=== PATIENT | female | born 1990 | race Caucasian/White ===

== ENCOUNTER 2017-03-29 20:55 | Emergency (ER) | payer MEDICAID ==
[~2017-03-29] VITALS: Ht 160 cm; Wt 80.1 kg
[~2017-03-29 20:55] MED LIST: CITA20TA9 PO; PRAZ2CAP2 PO; QUET25TA5 PO
[2017-03-29 22:32] LABS: CULTURE INDICATED? YES; MICROSCOPIC INDICATED
[2017-03-29 23:54] LABS: ALANINE AMINOTRANSFERASE 18 U/L (12-78); ALBUMIN 2.9 g/dL (3.4-5.0); ANION GAP 8 mmol/L (5-15); CHLORIDE 106 mmol/L (98-107); CREATININE 0.41 mg/dL (0.55-1.02)
[2017-03-29 23:56] LABS: BASOPHILS # (AUTO) 0.02 x10^3/uL (0-0.1); BASOPHILS % (AUTO) 0 % (0-1); EOSINOPHILS # (AUTO) 0.18 x10^3/uL (0-0.4); EOSINOPHILS % (AUTO) 2 % (1-7); LYMPHOCYTES # (AUTO) 3.18 x10^3/uL (1-3.4); LYMPHOCYTES % (AUTO) 38 % (22-44); MD NO; MEAN CORPUSCULAR HEMOGLOBIN 29.3 pg (27.0-34.8); MEAN CORPUSCULAR HGB CONC 33.3 g/dL (32.4-35.8); MEAN CORPUSCULAR VOLUME 87.9 fL (80-100); MEAN PLATELET VOLUME 9.3 fL (7.4-10.4); MONOCYTES # (AUTO) 0.48 x10^3/uL (0.2-0.8); MONOCYTES % (AUTO) 6 % (2-9); NEUTROPHILS # (AUTO) 4.52 x10^3/uL (1.8-6.8); NEUTROPHILS % (AUTO) 54 % (42-75); PLATELET COUNT 192 x10^3/uL (130-400); RED BLOOD COUNT 4.28 x10^6/uL (3.82-5.3); RED CELL DISTRIBUTION WIDTH 15.3 % (9.6-15.2)
[2017-03-30 00:01] VITALS: BP 103/63
[2017-03-30 00:10] LABS: ALKALINE PHOSPHATASE 49 U/L (45-117); BILIRUBIN,TOTAL 0.2 mg/dL (0.2-1.0); TOTAL PROTEIN 6.6 g/dL (6.4-8.2)
== END 2017-03-30 02:07 | disposition home or self-care (01) ==
LOC: ED 03-30 00:38
DX: O26.891 Other specified pregnancy related conditions, first trimester (principal); R10.30 Lower abdominal pain, unspecified; Z87.891 Personal history of nicotine dependence; Z3A.13 13 weeks gestation of pregnancy
CPT/HCPCS: 36415; 76801; 80053; 81001; 84702; 85025; 86901; 87086; 99285

== ENCOUNTER 2017-05-02 20:46 | Emergency (ER) | payer MEDICAID ==
[~2017-05-02] VITALS: Ht 160 cm; Wt 82.7 kg
[2017-05-02 20:47] VITALS: BP 112/75
== END 2017-05-02 22:58 | disposition home or self-care (01) ==
LOC: ED 21:40
DX: O20.0 Threatened abortion (principal); O26.892 Other specified pregnancy related conditions, second trimester; E05.90 Thyrotoxicosis, unspecified without thyrotoxic crisis or storm; O16.2 Unspecified maternal hypertension, second trimester; Z3A.18 18 weeks gestation of pregnancy; Z90.49 Acquired absence of other specified parts of digestive tract
CPT/HCPCS: 36415; 76815; 84702; 86901; 99285

== ENCOUNTER 2017-07-07 07:42 | Emergency (ER) | payer MEDICAID ==
[~2017-07-07] VITALS: Ht 160 cm; Wt 87.9 kg
[2017-07-07 07:44] VITALS: BP 112/72
== END 2017-07-07 08:42 | disposition home or self-care (01) ==
LOC: ED 08:30
DX: O26.892 Other specified pregnancy related conditions, second trimester (principal); Z3A.27 27 weeks gestation of pregnancy; K02.9 Dental caries, unspecified; K04.7 Periapical abscess without sinus; I10 Essential (primary) hypertension; Z90.49 Acquired absence of other specified parts of digestive tract
CPT/HCPCS: 99283

== ENCOUNTER 2017-09-09 15:42 | Inpatient (IN) | payer MEDICAID ==
[~2017-09-09] VITALS: Ht 160 cm; Wt 90.5 kg
[2017-09-09 16:25] VITALS: BP 116/69
[2017-09-09] MEDS ORDERED: METOCLOPRAMIDE 5 MG/ML, 2ML ONE (16:35)
[2017-09-09] MEDS ORDERED: OXYTOCIN 30U/ 0.9% NaCL 500ML 500 ML ONE (16:35)
[2017-09-09] MEDS ORDERED: NEWBORN KIT ONE (16:35)
[2017-09-09] MEDS ORDERED: SODIUM CITRATE/CITRIC ACID 30 ML UDC ONE (16:35)
[2017-09-09] MEDS ORDERED: morphine SULFATE/PF 0.5 MG/ML, 10ML ONE (16:45)
[2017-09-09] MEDS: LACTATED RINGERS 1,000 ML IV SCH ×4 (17:00→19:55)
[2017-09-09] MEDS ORDERED: SODIUM CITRATE/CITRIC ACID 30 ML UDC PO ONE (17:00)
[2017-09-09] MEDS ORDERED: LACTATED RINGERS 1,000 ML IVBOLUS ONE (17:00)
[2017-09-09] MEDS ORDERED: METOCLOPRAMIDE 5 MG/ML, 2ML IVPush ONE (17:00)
[2017-09-09 17:27] LABS: BASOPHILS # (AUTO) 0.03 x10^3/uL (0-0.1); BASOPHILS % (AUTO) 0 % (0-1); EOSINOPHILS # (AUTO) 0.19 x10^3/uL (0-0.4); EOSINOPHILS % (AUTO) 2 % (1-7); LYMPHOCYTES # (AUTO) 3.28 x10^3/uL (1-3.4); LYMPHOCYTES % (AUTO) 28 % (22-44); MD NO; MEAN CORPUSCULAR HEMOGLOBIN 27.9 pg (27.0-34.8); MEAN CORPUSCULAR HGB CONC 32.7 g/dL (32.4-35.8); MEAN CORPUSCULAR VOLUME 85.2 fL (80-100); MEAN PLATELET VOLUME 10.1 fL (7.4-10.4); MONOCYTES # (AUTO) 0.87 x10^3/uL (0.2-0.8); MONOCYTES % (AUTO) 8 % (2-9); NEUTROPHILS % (AUTO) 62 % (42-75); PLATELET COUNT 184 x10^3/uL (130-400); RED BLOOD COUNT 4.85 x10^6/uL (3.82-5.3); RED CELL DISTRIBUTION WIDTH 13.7 % (9.6-15.2)
[2017-09-09 17:40] LABS: MICROSCOPIC INDICATED
[2017-09-09 17:47] LABS: AMPHETAMINE SCREEN, URINE Negative (Negative); BARBITURATE SCREEN, URINE Negative (Negative); BENZODIAZEPINE SCREEN, URINE Negative (Negative); CANNABINOID SCREEN, URINE Negative (Negative); COCAINE SCREEN, URINE Negative (Negative); METHADONE SCREEN, URINE Positive (Negative); OPIATE SCREEN, URINE Negative (Negative)
[2017-09-09] MEDS ORDERED: MIDAZOLAM 1 MG/ML, 2ML ONE (18:26)
[2017-09-09] MEDS ORDERED: EPHEDRINE 50 MG/ML, 1ML ONE (19:31)
[2017-09-09] MEDS ORDERED: OXYTOCIN 10 UNITS/ML, 1ML ONE (19:31)
[2017-09-09] MEDS ORDERED: CEFAZOLIN 1,000 MG ONE (19:31)
[2017-09-09] MEDS ORDERED: PHENYLEPHRINE 10 MG/ML ONE (19:31)
[2017-09-09] MEDS ORDERED: ONDANSETRON 2MG/ML, 2ML ONE (19:31)
[2017-09-09] MEDS ORDERED: WATER-INJECTION,STERILE 10 ML IV ONE (19:31)
[2017-09-09] MEDS: OXYTOCIN 30U/ 0.9% NaCL 500ML 500 ML IV SCH ×2 (19:33→19:55)
[2017-09-09] MEDS ORDERED: ONDANSETRON 2MG/ML, 2ML IV PRN (20:00)
[2017-09-09] MEDS ORDERED: METHYLERGONOVINE 0.2 MG/ML IM PRN (20:00)
[2017-09-09] MEDS ORDERED: SIMETHICONE 80 MG CHEW TAB PO PRN (20:00)
[2017-09-09] MEDS ORDERED: ACETAMINOPHEN 325 MG TABLET PO PRN ×3 (20:00)
[2017-09-09] MEDS ORDERED: CARBOPROST TROMETHAMINE 250 MCG/ML, 1ML IM PRN (20:00)
[2017-09-09] MEDS ORDERED: KETOROLAC 30 MG/1 ML IV PRN (20:00)
[2017-09-09] MEDS ORDERED: CALCIUM CARBONATE 500 MG TAB.CHEW PO PRN (20:00)
[2017-09-09] MEDS ORDERED: KETOROLAC 30 MG/1 ML ONE (20:06)
[2017-09-09] MEDS ORDERED: METHADONE PO PRN (20:30)
[2017-09-09] MEDS: KETOROLAC 30 MG/1 ML IV PRN (20:36)
[2017-09-09] MEDS ORDERED: METHADONE INTENSOL 10 MG/ML ORAL CONC PO PRN (21:00)
[2017-09-09 21:45] VITALS: BP 124/77
[2017-09-09] MEDS ORDERED: DIPHENHYDRAMINE 50 MG/ML, 1ML IV PRN (22:30)
[2017-09-09] MEDS ORDERED: OXYcodone/APAP 5/325MG TABLET PO PRN (22:30)
[2017-09-09] MEDS ORDERED: HYDROmorphone 1 MG/ML, 1ML IVPush PRN (22:30)
[2017-09-09] MEDS ORDERED: NALOXONE 0.4 MG/ML, 1ML IV PRN ×2 (22:30)
[2017-09-09] MEDS ORDERED: ONDANSETRON 2MG/ML, 2ML IVPush PRN (22:30)
[2017-09-10] MEDS: LACTATED RINGERS 1,000 ML IV SCH ×5 (00:34→15:33)
[2017-09-10 00:42] VITALS: BP 103/65
[2017-09-10] MEDS: KETOROLAC 30 MG/1 ML IV PRN ×3 (02:22→14:44)
[2017-09-10] MEDS: OXYTOCIN 30U/ 0.9% NaCL 500ML 500 ML IV SCH ×3 (02:34→15:33)
[2017-09-10 03:48] VITALS: BP 108/67
[2017-09-10] MEDS: OXYcodone/APAP 5/325MG TABLET PO PRN ×2 (04:04→18:24)
[2017-09-10 05:59] LABS: BASOPHILS # (AUTO) 0.04 x10^3/uL (0-0.1); BASOPHILS % (AUTO) 0 % (0-1); EOSINOPHILS # (AUTO) 0.14 x10^3/uL (0-0.4); EOSINOPHILS % (AUTO) 1 % (1-7); LYMPHOCYTES # (AUTO) 2.24 x10^3/uL (1-3.4); LYMPHOCYTES % (AUTO) 20 % (22-44); MD NO; MEAN CORPUSCULAR HEMOGLOBIN 28.7 pg (27.0-34.8); MEAN CORPUSCULAR HGB CONC 33.3 g/dL (32.4-35.8); MEAN CORPUSCULAR VOLUME 86.2 fL (80-100); MEAN PLATELET VOLUME 9.9 fL (7.4-10.4); MONOCYTES # (AUTO) 0.65 x10^3/uL (0.2-0.8); MONOCYTES % (AUTO) 6 % (2-9); NEUTROPHILS # (AUTO) 8.36 x10^3/uL (1.8-6.8); NEUTROPHILS % (AUTO) 73 % (42-75); PLATELET COUNT 176 x10^3/uL (130-400); RED BLOOD COUNT 4.29 x10^6/uL (3.82-5.3); RED CELL DISTRIBUTION WIDTH 13.6 % (9.6-15.2)
[2017-09-10 07:00] VITALS: BP 107/71
[2017-09-10] MEDS: DOCUSATE 100 MG CAPSULE PO PRN ×2 (09:51→21:36)
[2017-09-10] MEDS: PRENATAL VIT/IRON/FA 1 EACH TABLET PO SCH (09:51)
[2017-09-10] MEDS: METHADONE INTENSOL 10 MG/ML ORAL CONC PO SCH ×2 (09:52→21:36)
[2017-09-10 12:30] VITALS: BP 110/71
[2017-09-10 20:00] VITALS: BP 111/77
[2017-09-10] MEDS: IBUPROFEN 800 MG TABLET PO PRN (21:42)
[2017-09-11] MEDS: LACTATED RINGERS 1,000 ML IV SCH (01:33)
[2017-09-11] MEDS: OXYTOCIN 30U/ 0.9% NaCL 500ML 500 ML IV SCH (01:33)
[2017-09-11] MEDS: OXYcodone/APAP 5/325MG TABLET PO PRN (03:13)
[2017-09-11 08:00] VITALS: BP 97/61
[2017-09-11] MEDS: DOCUSATE 100 MG CAPSULE PO PRN ×2 (09:19→21:19)
[2017-09-11] MEDS: PRENATAL VIT/IRON/FA 1 EACH TABLET PO SCH (09:19)
[2017-09-11] MEDS: METHADONE INTENSOL 10 MG/ML ORAL CONC PO SCH ×2 (09:19→21:19)
[2017-09-11] MEDS: IBUPROFEN 800 MG TABLET PO PRN ×2 (09:28→17:17)
[2017-09-11 23:45] VITALS: BP 116/67
[2017-09-12] MEDS: OXYcodone/APAP 5/325MG TABLET PO PRN (00:35)
[2017-09-12] MEDS: PRENATAL VIT/IRON/FA 1 EACH TABLET PO SCH (09:05)
[2017-09-12] MEDS: DOCUSATE 100 MG CAPSULE PO PRN (09:05)
[2017-09-12] MEDS: METHADONE INTENSOL 10 MG/ML ORAL CONC PO SCH ×2 (09:06→22:08)
[2017-09-12 09:30] VITALS: BP 117/80
[2017-09-12] MEDS: IBUPROFEN 800 MG TABLET PO PRN (11:05)
[2017-09-12 21:14] VITALS: BP 109/75
[2017-09-13 01:43] VITALS: BP 118/82
[2017-09-13 08:20] VITALS: BP 118/81
[2017-09-13] MEDS: METHADONE INTENSOL 10 MG/ML ORAL CONC PO SCH (09:10)
[2017-09-13] MEDS: DOCUSATE 100 MG CAPSULE PO PRN (09:21)
[2017-09-13] MEDS: PRENATAL VIT/IRON/FA 1 EACH TABLET PO SCH (09:21)
[2017-09-13] MEDS ORDERED: IBUP-1222 PO (11:30)
== END 2017-09-13 18:20 | disposition home or self-care (01) | DRG 765 ==
LOC: LDOP 15:42 → LDIP 16:34 → 2NW 21:25
PROVIDERS: ADMIT Obstetrics & Gynecology; ATTEND Obstetrics & Gynecology
PROC: 10D00Z1 Extraction of Products of Conception, Low, Open Approach (ICD-10-PCS; principal; 2017-09-09)
DX: O34.211 Maternal care for low transverse scar from previous cesarean delivery (principal); O99.324 Drug use complicating childbirth; Z37.0 Single live birth; O99.284 Endocrine, nutritional and metabolic diseases complicating childbirth; F11.90 Opioid use, unspecified, uncomplicated; E03.9 Hypothyroidism, unspecified; O36.5930 Maternal care for other known or suspected poor fetal growth, third trimester, not applicable or unspecified; Z3A.37 37 weeks gestation of pregnancy
CPT/HCPCS: 36415; 80307; 81001; 85025; 86850; 86900; 87086; J0690; J1885; J2250; J2274; J2405; J2370; J2590; J2765; J7120

== ENCOUNTER 2017-12-11 14:11 | Emergency (ER) | payer MEDICAID ==
[~2017-12-11] VITALS: Ht 160 cm; Wt 90.0 kg
[~2017-12-11 14:11] MED LIST changes: +IBUP-1222 PO
[2017-12-11 14:25] VITALS: BP 119/71
[2017-12-11] MEDS ORDERED: METH5TAB2 PO (14:37)
[2017-12-11 14:52] LABS: BASOPHILS # (AUTO) 0.01 x10^3/uL (0-0.1); BASOPHILS % (AUTO) 0 % (0-1); EOSINOPHILS # (AUTO) 0.16 x10^3/uL (0-0.4); EOSINOPHILS % (AUTO) 2 % (1-7); LYMPHOCYTES # (AUTO) 1.58 x10^3/uL (1-3.4); LYMPHOCYTES % (AUTO) 23 % (22-44); MD NO; MEAN CORPUSCULAR HEMOGLOBIN 27.6 pg (27.0-34.8); MEAN CORPUSCULAR HGB CONC 33.8 g/dL (32.4-35.8); MEAN CORPUSCULAR VOLUME 81.5 fL (80-100); MEAN PLATELET VOLUME 8.8 fL (7.4-10.4); MONOCYTES # (AUTO) 0.24 x10^3/uL (0.2-0.8); MONOCYTES % (AUTO) 3 % (2-9); NEUTROPHILS % (AUTO) 72 % (42-75); PLATELET COUNT 262 x10^3/uL (130-400); RED BLOOD COUNT 5.32 x10^6/uL (3.82-5.3); RED CELL DISTRIBUTION WIDTH 15.2 % (9.6-15.2)
[2017-12-11 14:59] LABS: ALANINE AMINOTRANSFERASE 30 U/L (12-78); ALBUMIN 3.9 g/dL (3.4-5.0); ANION GAP 9 mmol/L (5-15); CALCIUM 8.2 mg/dL (8.5-10.1); CHLORIDE 103 mmol/L (98-107); CREATININE 0.86 mg/dL (0.55-1.02)
[2017-12-11] MEDS ORDERED: ONDANSETRON ODT 4 MG PO ONE (15:00)
[2017-12-11 15:03] LABS: ALKALINE PHOSPHATASE 82 U/L (45-117); BILIRUBIN,TOTAL 1.5 mg/dL (0.2-1.0); TOTAL PROTEIN 8.8 g/dL (6.4-8.2)
[2017-12-11] MEDS ORDERED: ONDANSETRON ODT 4 MG ONE (15:14)
[2017-12-11 15:18] LABS: MICROSCOPIC AUTO
[2017-12-11 15:23] LABS: CULTURE INDICATED? YES
== END 2017-12-11 17:21 | disposition home or self-care (01) ==
LOC: ED 17:19
DX: K52.9 Noninfective gastroenteritis and colitis, unspecified (principal); N30.00 Acute cystitis without hematuria; I10 Essential (primary) hypertension; E03.9 Hypothyroidism, unspecified; Z87.891 Personal history of nicotine dependence; Z90.89 Acquired absence of other organs; Z90.49 Acquired absence of other specified parts of digestive tract; E66.01 Morbid (severe) obesity due to excess calories; Z68.35 Body mass index [BMI] 35.0-35.9, adult
CPT/HCPCS: 36415; 76700; 80053; 81001; 83690; 84703; 85025; 87086; 99285; Q0162

== ENCOUNTER 2019-03-18 21:37 | Outpatient (CLI) | payer OTHER ==
[~2019-03-18] VITALS: Ht 160 cm; Wt 90.0 kg
[~2019-03-18 21:37] MED LIST changes: +METH5TAB2 PO
[2019-03-18 21:58] VITALS: BP 123/70
[2019-03-18] MEDS ORDERED: PREN1TAB60 PO (22:21)
[2019-03-18 22:42] LABS: MICROSCOPIC INDICATED
[2019-03-18 22:50] LABS: AMPHETAMINE SCREEN, URINE Positive (Negative); BARBITURATE SCREEN, URINE Negative (Negative); BENZODIAZEPINE SCREEN, URINE Negative (Negative); CANNABINOID SCREEN, URINE Negative (Negative); COCAINE SCREEN, URINE Negative (Negative); METHADONE SCREEN, URINE Negative (Negative); OPIATE SCREEN, URINE Negative (Negative)
[2019-03-18] MEDS ORDERED: NITR100C56 PO (23:13)
[2019-03-18] MEDS ORDERED: NITROFURANTOIN (MACROBID) 100 MG CAPSULE ONE (23:14)
[2019-03-18] MEDS ORDERED: NITROFURANTOIN (MACROBID) 100 MG CAPSULE PO ONE (23:30)
== END 2019-03-18 23:23 | disposition home or self-care (01) ==
LOC: LDOP 21:37
PROVIDERS: ATTEND Obstetrics & Gynecology
DX: O26.891 Other specified pregnancy related conditions, first trimester (principal); R10.9 Unspecified abdominal pain; M54.5 Low back pain; Z3A.11 11 weeks gestation of pregnancy
CPT/HCPCS: 80307; 81001; 87077; 87086; 87186; 99211; G0463

== ENCOUNTER 2019-04-23 10:29 | Outpatient (CLI) | payer MEDICAID, OTHER ==
[~2019-04-23] VITALS: Ht 160 cm; Wt 89.0 kg
[~2019-04-23 10:29] MED LIST changes: +NITR100C56 PO; +PREN1TAB60 PO
[2019-04-23] MEDS ORDERED: DIAZEPAM 10 MG TABLET PO ONE (11:00)
[2019-04-23 11:32] LABS: AMPHETAMINE SCREEN, URINE Negative (Negative); BARBITURATE SCREEN, URINE Negative (Negative); BENZODIAZEPINE SCREEN, URINE Negative (Negative); CANNABINOID SCREEN, URINE Negative (Negative); COCAINE SCREEN, URINE Negative (Negative); METHADONE SCREEN, URINE Negative (Negative); OPIATE SCREEN, URINE Negative (Negative)
[2019-04-23 11:51] LABS: ALBUMIN 2.4 g/dL (3.4-5.0); CHLORIDE 105 mmol/L (98-107)
[2019-04-23 11:52] LABS: MICROSCOPIC INDICATED
[2019-04-23 11:57] LABS: ALANINE AMINOTRANSFERASE 16 U/L (12-78); ALKALINE PHOSPHATASE 105 U/L (45-117); ANION GAP 8 mmol/L (5-15); BILIRUBIN,TOTAL 0.4 mg/dL (0.2-1.0); CALCIUM 8.6 mg/dL (8.5-10.1); CREATININE 0.57 mg/dL (0.55-1.02); TOTAL PROTEIN 7.3 g/dL (6.4-8.2)
[2019-04-23 12:12] LABS: MEAN CORPUSCULAR HEMOGLOBIN 25.7 pg (27.0-34.8); MEAN CORPUSCULAR VOLUME 80.4 fL (80-100); MEAN PLATELET VOLUME 10.3 fL (7.4-10.4); PLATELET COUNT 275 x10^3/uL (130-400); RED BLOOD COUNT 4.11 x10^6/uL (3.82-5.3); RED CELL DISTRIBUTION WIDTH 15.6 % (9.6-15.2)
== END 2019-04-23 13:40 | disposition home or self-care (01) ==
LOC: LDOP 10:29
PROVIDERS: ATTEND Obstetrics & Gynecology
DX: O26.892 Other specified pregnancy related conditions, second trimester (principal); R42 Dizziness and giddiness; R06.02 Shortness of breath; Z3A.17 17 weeks gestation of pregnancy
CPT/HCPCS: 36415; 80053; 80307; 81001; 85027; 86592; 86762; 86850; 86900; 87086; 87340; 87806; 99211; G0463; G0475

== ENCOUNTER 2019-06-21 12:27 | Emergency (ER) | payer MEDICAID ==
--- NOTE | 2019-06-21 12:36 | NUR ---
ETCHER [employer] BOARDS: PT WITH NO RESPIRATORY COMPLAINTS OR SYMPTOMS, NO FEVER. PT TO L&D VIA WHEELCHAIR WITH TECH TRANSPORT.
--- NOTE | 2019-06-21 12:37 | NUR ---
WARPER CREELER: CALLED L&D TO ALERT THEM OF PT ARRIVAL
== END 2019-06-21 12:50 ==
LOC: ED 12:44
DX: O26.893 Other specified pregnancy related conditions, third trimester (principal); R10.9 Unspecified abdominal pain; M54.9 Dorsalgia, unspecified; Z53.21 Procedure and treatment not carried out due to patient leaving prior to being seen by health care provider

== ENCOUNTER 2019-06-21 12:48 | Outpatient (CLI) | payer MEDICAID ==
[~2019-06-21] VITALS: Ht 160 cm; Wt 100.0 kg
[2019-06-21 13:30] LABS: AMPHETAMINE SCREEN, URINE Negative (Negative); BARBITURATE SCREEN, URINE Negative (Negative); BENZODIAZEPINE SCREEN, URINE Negative (Negative); CANNABINOID SCREEN, URINE Negative (Negative); COCAINE SCREEN, URINE Negative (Negative); METHADONE SCREEN, URINE Negative (Negative); OPIATE SCREEN, URINE Negative (Negative)
[2019-06-21 13:42] VITALS: BP 110/73
== END 2019-06-21 14:05 | disposition home or self-care (01) ==
LOC: LDOP 12:48
PROVIDERS: ATTEND Obstetrics & Gynecology
DX: O26.893 Other specified pregnancy related conditions, third trimester (principal); R10.9 Unspecified abdominal pain; Z3A.36 36 weeks gestation of pregnancy
CPT/HCPCS: 59025; 80307; 99211; G0463

== ENCOUNTER 2019-06-23 06:14 | Outpatient (CLI) | payer MEDICAID ==
[2019-06-23 07:32] LABS: MICROSCOPIC INDICATED
[2019-06-23 07:39] LABS: AMPHETAMINE SCREEN, URINE Negative (Negative); BARBITURATE SCREEN, URINE Negative (Negative); BENZODIAZEPINE SCREEN, URINE Negative (Negative); CANNABINOID SCREEN, URINE Negative (Negative); COCAINE SCREEN, URINE Negative (Negative); METHADONE SCREEN, URINE Negative (Negative); OPIATE SCREEN, URINE Negative (Negative)
== END 2019-06-23 08:19 | disposition home or self-care (01) ==
LOC: LDOP 06:14
PROVIDERS: ATTEND Obstetrics & Gynecology
DX: O62.9 Abnormality of forces of labor, unspecified (principal); Z3A.36 36 weeks gestation of pregnancy
CPT/HCPCS: 59025; 80307; 81001; 87086; 99211; G0463

== ENCOUNTER 2019-06-30 10:01 | Inpatient (IN) | payer MEDICAID ==
[~2019-06-30] VITALS: Ht 160 cm; Wt 100.0 kg
[2019-06-30 10:23] VITALS: BP 114/64
[2019-06-30] MEDS ORDERED: OXYTOCIN 30U/ 0.9% NaCL 500ML 500 ML ONE (10:29)
[2019-06-30] MEDS ORDERED: SODIUM CITRATE/CITRIC ACID 30 ML UDC ONE (10:29)
[2019-06-30] MEDS ORDERED: METOCLOPRAMIDE 5 MG/ML, 2ML ONE (10:29)
[2019-06-30] MEDS ORDERED: NEWBORN KIT ONE (10:29)
[2019-06-30] MEDS ORDERED: SODIUM CITRATE/CITRIC ACID 30 ML UDC PO ONE (10:30)
[2019-06-30] MEDS ORDERED: LACTATED RINGERS 1,000 ML IVBOLUS ONE (10:30)
[2019-06-30 10:43] LABS: AMPHETAMINE SCREEN, URINE Negative (Negative); BARBITURATE SCREEN, URINE Negative (Negative); BENZODIAZEPINE SCREEN, URINE Negative (Negative); CANNABINOID SCREEN, URINE Negative (Negative); COCAINE SCREEN, URINE Negative (Negative); METHADONE SCREEN, URINE Negative (Negative); OPIATE SCREEN, URINE Negative (Negative)
[2019-06-30 10:54] LABS: MD YES; MEAN CORPUSCULAR HEMOGLOBIN 20.5 pg (27.0-34.8); MEAN CORPUSCULAR HGB CONC 30.7 g/dL (32.4-35.8); MEAN CORPUSCULAR VOLUME 66.8 fL (80-100); MEAN PLATELET VOLUME 10.3 fL (7.4-10.4); PLATELET COUNT 148 x10^3/uL (130-400); RED BLOOD COUNT 4.45 x10^6/uL (3.82-5.3); RED CELL DISTRIBUTION WIDTH 20.1 % (9.6-15.2)
[2019-06-30 10:56] LABS: BAND#(MANUAL) 0.12 x10^3/uL; BANDS%(MANUAL) 1 % (0-7); LYMPH#(MANUAL) 2.48 x10^3/uL (1-3.4); LYMPHS% (MANUAL) 20 % (22-44); MONOS% (MANUAL) 4 % (2-9); NRBC % (MANUAL) 1 % (0-1); SEGS% (MANUAL) 75 % (42-75)
[2019-06-30 10:57] LABS: <PLATELET ESTIMATE> ADEQUATE; ANISOCYTOSIS 1+; HYPOCHROMIA 1+; MICROCYTOSIS 2+; POLYCHROMASIA 1+
[2019-06-30 10:58] LABS: LARGE PLATELETS 2+
[2019-06-30] MEDS ORDERED: LACTATED RINGERS 1,000 ML IV SCH (11:00)
[2019-06-30] MEDS ORDERED: METOCLOPRAMIDE 5 MG/ML, 2ML IV ONE (11:00)
[2019-06-30] MEDS ORDERED: morphine SULFATE/PF 0.5 MG/ML, 10ML ONE (11:42)
[2019-06-30] MEDS ORDERED: MIDAZOLAM 1 MG/ML, 2ML ONE (11:43)
[2019-06-30] MEDS ORDERED: CEFAZOLIN 1,000 MG ONE (11:46)
[2019-06-30] MEDS ORDERED: KETOROLAC 30 MG/1 ML ONE (11:46)
[2019-06-30] MEDS ORDERED: DEXAMETHASONE 4 MG/ML, 1ML ONE (11:46)
[2019-06-30] MEDS ORDERED: OXYTOCIN 10 UNITS/ML, 1ML ONE ×2 (11:46→12:44)
[2019-06-30] MEDS ORDERED: WATER-INJECTION,STERILE 10 ML IV ONE (11:46)
[2019-06-30] MEDS ORDERED: ONDANSETRON 2MG/ML, 2ML ONE (11:46)
[2019-06-30] MEDS ORDERED: LIDOCAINE 1%, 20ML ONE (12:17)
[2019-06-30] MEDS ORDERED: MIDAZOLAM 1 MG/ML, 5ML ONE (12:34)
[2019-06-30] MEDS ORDERED: KETAMINE 10 MG/ML, 20ML ONE (12:42)
[2019-06-30] MEDS ORDERED: PHENYLEPHRINE 10 MG/ML ONE (12:58)
[2019-06-30] MEDS ORDERED: SODIUM CHLORIDE 0.9% PF 10ML ONE (12:58)
[2019-06-30] MEDS: LACTATED RINGERS 1,000 ML IV SCH ×3 (13:57→23:32)
[2019-06-30] MEDS: OXYTOCIN 30U/ 0.9% NaCL 500ML 500 ML IV SCH ×2 (13:57→23:32)
[2019-06-30] MEDS ORDERED: ACETAMINOPHEN 325 MG TABLET PO PRN (14:00)
[2019-06-30] MEDS ORDERED: CALCIUM CARBONATE 500 MG TAB.CHEW PO PRN (14:00)
[2019-06-30] MEDS ORDERED: ONDANSETRON 2MG/ML, 2ML IV PRN (14:00)
[2019-06-30] MEDS ORDERED: METHYLERGONOVINE 0.2 MG/ML IM PRN (14:00)
[2019-06-30] MEDS ORDERED: IBUPROFEN 800 MG TABLET PO PRN (14:00)
[2019-06-30 15:10] VITALS: BP 113/86
[2019-06-30] MEDS ORDERED: DIPHENHYDRAMINE 50 MG/ML, 1ML ONE (16:09)
[2019-06-30] MEDS: DIPHENHYDRAMINE 50 MG/ML, 1ML IVPush PRN (16:17)
[2019-06-30] MEDS: KETOROLAC 30 MG/1 ML IV SCH (19:30)
[2019-06-30] MEDS: DOCUSATE 100 MG CAPSULE PO PRN (19:31)
[2019-06-30 20:00] VITALS: BP 118/76
[2019-06-30 21:28] LABS: BASOPHILS # (AUTO) 0.01 x10^3/uL (0-0.1); BASOPHILS % (AUTO) 0 % (0-1); EOSINOPHILS # (AUTO) 0.12 x10^3/uL (0-0.4); EOSINOPHILS % (AUTO) 1 % (1-7); LYMPHOCYTES # (AUTO) 1.27 x10^3/uL (1-3.4); LYMPHOCYTES % (AUTO) 9 % (22-44); MD SCAN; MEAN CORPUSCULAR HEMOGLOBIN 20.8 pg (27.0-34.8); MEAN CORPUSCULAR HGB CONC 31.1 g/dL (32.4-35.8); MEAN CORPUSCULAR VOLUME 66.8 fL (80-100); MEAN PLATELET VOLUME 12.7 fL (7.4-10.4); MONOCYTES # (AUTO) 0.74 x10^3/uL (0.2-0.8); MONOCYTES % (AUTO) 5 % (2-9); NEUTROPHILS # (AUTO) 11.89 x10^3/uL (1.8-6.8); NEUTROPHILS % (AUTO) 85 % (42-75); PLATELET COUNT 178 x10^3/uL (130-400); RED BLOOD COUNT 4.05 x10^6/uL (3.82-5.3); RED CELL DISTRIBUTION WIDTH 19.6 % (9.6-15.2)
[2019-07-01 00:12] VITALS: BP 128/75
[2019-07-01] MEDS: KETOROLAC 30 MG/1 ML IV SCH ×4 (01:38→20:01)
[2019-07-01] MEDS: LACTATED RINGERS 1,000 ML IV SCH ×5 (05:00→21:00)
[2019-07-01 05:24] VITALS: BP 111/76
[2019-07-01] MEDS: DIPHENHYDRAMINE 50 MG/ML, 1ML IVPush PRN ×2 (08:09)
[2019-07-01] MEDS: DOCUSATE 100 MG CAPSULE PO PRN ×2 (08:09→20:01)
[2019-07-01] MEDS: PRENATAL VIT/IRON/FA 1 EACH TABLET PO SCH (08:09)
[2019-07-01 08:10] VITALS: BP 112/79
[2019-07-01] MEDS: OXYTOCIN 30U/ 0.9% NaCL 500ML 500 ML IV SCH ×2 (09:32→19:32)
[2019-07-01 20:00] VITALS: BP 116/77
[2019-07-01] MEDS: OXYcodone/APAP 5/325MG TABLET PO PRN (23:38)
[2019-07-02] MEDS: DIPHENHYDRAMINE 50 MG CAPSULE PO PRN ×3 (00:26→17:40)
[2019-07-02] MEDS: KETOROLAC 30 MG/1 ML IV SCH ×2 (01:30→07:30)
[2019-07-02] MEDS: LACTATED RINGERS 1,000 ML IV SCH ×2 (05:00→05:32)
[2019-07-02] MEDS: OXYcodone/APAP 5/325MG TABLET PO PRN ×3 (05:04→17:48)
[2019-07-02] MEDS: OXYTOCIN 30U/ 0.9% NaCL 500ML 500 ML IV SCH (05:32)
[2019-07-02 07:45] VITALS: BP 126/79
[2019-07-02] MEDS ORDERED: IBUPROFEN 800 MG TABLET ONE (09:04)
[2019-07-02] MEDS: PRENATAL VIT/IRON/FA 1 EACH TABLET PO SCH (09:06)
[2019-07-02] MEDS: IBUPROFEN 800 MG TABLET PO PRN ×2 (09:06→17:40)
[2019-07-02] MEDS: DOCUSATE 100 MG CAPSULE PO PRN ×2 (09:06→20:07)
[2019-07-02] MEDS: SIMETHICONE 80 MG CHEW TAB PO PRN ×2 (09:06→17:40)
[2019-07-02 19:15] VITALS: BP 110/73
[2019-07-03] MEDS: OXYcodone/APAP 5/325MG TABLET PO PRN (03:32)
[2019-07-03 07:40] VITALS: BP 144/93
[2019-07-03] MEDS: IBUPROFEN 800 MG TABLET PO PRN ×2 (07:46→17:29)
[2019-07-03] MEDS: DOCUSATE 100 MG CAPSULE PO PRN ×2 (07:46→22:23)
[2019-07-03] MEDS: PRENATAL VIT/IRON/FA 1 EACH TABLET PO SCH (09:00)
[2019-07-03 20:30] VITALS: BP 100/88
[2019-07-03] MEDS: DIPHENHYDRAMINE 50 MG CAPSULE PO PRN (22:23)
[2019-07-03] MEDS: ACYCLOVIR 400 MG TABLET PO SCH (22:23)
[2019-07-03] MEDS: ACYCLOVIR OINT 5%, 15GM TP SCH (22:24)
[2019-07-04] MEDS: OXYcodone/APAP 5/325MG TABLET PO PRN (01:01)
[2019-07-04] MEDS: IBUPROFEN 800 MG TABLET PO PRN ×2 (01:01→08:59)
[2019-07-04] MEDS ORDERED: OXYC-302 PO (08:49)
[2019-07-04] MEDS ORDERED: IBUP-1223 PO (08:50)
[2019-07-04] MEDS ORDERED: FERR324T5 PO (08:51)
[2019-07-04] MEDS ORDERED: DOCU-131 PO (08:52)
[2019-07-04] MEDS ORDERED: ACYC5CRE3 TP (08:56)
[2019-07-04] MEDS: ACYCLOVIR 400 MG TABLET PO SCH (08:58)
[2019-07-04] MEDS: PRENATAL VIT/IRON/FA 1 EACH TABLET PO SCH (08:59)
[2019-07-04] MEDS: DOCUSATE 100 MG CAPSULE PO PRN (08:59)
[2019-07-04] MEDS: ACYCLOVIR OINT 5%, 15GM TP SCH (08:59)
== END 2019-07-04 12:30 | disposition home or self-care (01) | DRG 784 ==
LOC: LDIP 10:01 → 2NW 15:06
PROVIDERS: ADMIT Obstetrics & Gynecology; ATTEND Obstetrics & Gynecology
PROC: 10D00Z1 Extraction of Products of Conception, Low, Open Approach (ICD-10-PCS; principal; 2019-06-30)
PROC: 0UB70ZZ Excision of Bilateral Fallopian Tubes, Open Approach (ICD-10-PCS; 2019-06-30)
DX: O13.4 Gestational [pregnancy-induced] hypertension without significant proteinuria, complicating childbirth (principal); O98.52 Other viral diseases complicating childbirth; B00.89 Other herpesviral infection; D64.9 Anemia, unspecified; O24.429 Gestational diabetes mellitus in childbirth, unspecified control; O34.211 Maternal care for low transverse scar from previous cesarean delivery; O99.02 Anemia complicating childbirth; Z37.0 Single live birth; Z3A.37 37 weeks gestation of pregnancy
CPT/HCPCS: 36415; J3490; 80307; 82803; 82962; 85025; 86592; 86850; 86900; 88302; G0378; J0690; J1100; J1885; J2250; J2274; J2405; J1200; J2370; J2590; J2765; J7120